=== PATIENT | female | born 1960 | race Caucasian/White ===

== ENCOUNTER → 2018-06-26 | Outpatient (CLI) | payer OTHER | LOC: FIMAGING 13:03 | PROVIDERS: ATTEND Physician Assistant Medical | DX: R22.32 Localized swelling, mass and lump, left upper limb (principal) ==

== ENCOUNTER → 2018-06-30 | Outpatient (CLI) | payer OTHER | LOC: FIMAGING 07:44 | PROVIDERS: ATTEND Family Medicine | DX: R22.32 Localized swelling, mass and lump, left upper limb (principal) ==

== ENCOUNTER 2018-07-19 12:56 | Day surgery (SDC) | payer OTHER ==
[2018-07-19 13:44] LABS: INR 0.99 (0.83-1.16); PROTIME(PATIENT) 13.3 SEC (12.0-15.0)
[2018-07-19] MEDS ORDERED: fentaNYL 100 MCG/2 ML INJ ONE (13:46)
[2018-07-19] MEDS ORDERED: MIDAZOLAM 2 MG/2 ML VIAL ONE (13:46)
--- NOTE | 2018-07-19 13:49 | PDRADPRE ---
Radiology History & Physical Indication for procedure: cancer Home medications: Aspirin 81mg (*) 81 mg PO 07/15/18 [Last Taken Unknown] Lorazepam 0.5 mg PO PRN PRN 07/15/18 [Last Taken Unknown] Allergies/Adverse Reactions: No Known Allergies Allergy (Unverified 07/15/18 17:17) Mental status: A&Ox3
--- NOTE | 2018-07-19 13:49 | PDPROPOC ---
Sedation Plan of Care ASA Classification: ASA 2 Mallampati Score: Class 2 Mallampati Reference Image:
[2018-07-19] MEDS ORDERED: LIDO/EPI 1% **for epidural** 30 ML SDV ONE (13:58)
[2018-07-19] MEDS ORDERED: fentaNYL 100 MCG/2 ML INJ IVP PRN (14:31)
[2018-07-19] MEDS ORDERED: FLUMAZENIL 0.5 MG/5 ML MDV IVP PRN (14:31)
[2018-07-19] MEDS ORDERED: NALOXONE HCL 0.4 MG/ML INJ IVP PRN (14:31)
[2018-07-19] MEDS ORDERED: MEPERIDINE 25 MG/ML SYR IVP PRN (14:31)
[2018-07-19] MEDS ORDERED: MIDAZOLAM 2 MG/2 ML VIAL IVP PRN (14:31)
[2018-07-19] MEDS ORDERED: NS 1,000 ML IV SCH (14:45)
[2018-07-19] MEDS ORDERED: ONDANSETRON 4 MG/2 ML VIAL IVP PRN (15:27)
[2018-07-19] MEDS ORDERED: ACETAMINOPHEN 325 MG TAB PO PRN (15:27)
[2018-07-19] MEDS ORDERED: LIDOCAINE 1% 300 MG/30 ML SDV ONE (16:02)
[2018-07-19 16:22] VITALS: BP 134/90
== END 2018-07-19 16:47 | disposition home or self-care (01) ==
LOC: FIMAGING 12:56
PROVIDERS: ATTEND Internal Medicine Hematology & Oncology
PROC: 0JH60WZ Insertion of Totally Implantable Vascular Access Device into Chest Subcutaneous Tissue and Fascia, Open Approach (ICD-10-PCS; principal; 2018-07-19 15:40)
PROC: 02HV33Z Insertion of Infusion Device into Superior Vena Cava, Percutaneous Approach (ICD-10-PCS; principal; 2018-07-19 15:40)
DX: Z45.2 Encounter for adjustment and management of vascular access device (principal); C49.12 Malignant neoplasm of connective and soft tissue of left upper limb, including shoulder
CPT/HCPCS: J1642; J2250; J3010

== ENCOUNTER 2018-09-11 11:06 | Day surgery (SDC) | payer OTHER ==
[2018-09-11] MEDS ORDERED: FLUMAZENIL 0.5 MG/5 ML MDV IVP PRN (11:53)
[2018-09-11] MEDS ORDERED: NALOXONE HCL 0.4 MG/ML INJ IVP PRN (11:53)
[2018-09-11] MEDS ORDERED: MIDAZOLAM 2 MG/2 ML VIAL IVP PRN (11:53)
[2018-09-11] MEDS ORDERED: fentaNYL 100 MCG/2 ML INJ IVP PRN (11:53)
[2018-09-11] MEDS ORDERED: NS 1,000 ML IV SCH (12:00)
[2018-09-11] MEDS ORDERED: LIDO/EPI 1% **for epidural** 30 ML SDV ONE (12:32)
[2018-09-11 12:36] LABS: INR 1.07 (0.83-1.16); PROTIME(PATIENT) 13.5 SEC (12.0-15.0)
[2018-09-11 12:57] LABS: PLATELET COUNT 63 10^3/uL (150-400)
[2018-09-11] MEDS ORDERED: ONDANSETRON 4 MG/2 ML VIAL IVP PRN (13:54)
[2018-09-11] MEDS ORDERED: ACETAMINOPHEN 325 MG TAB PO PRN (13:54)
--- NOTE | 2018-09-11 13:55 | PDPROPOC ---
Sedation Plan of Care Sedation Plan of Care: vital signs stable, mental status noted, patient educated of risks, benefits, alternatives, patient can tolerate sedation ASA Classification: ASA 2 Planned drugs: fentanyl, midazolam Mallampati Score: Class 2 Mallampati Reference Image: Patient passed 3-3-2 rule?: Yes
--- NOTE | 2018-09-11 13:56 | PDRADPRE ---
Radiology History & Physical Indication for procedure: cancer (Port removal; completion of thearpy. Wound dehiscense without gross evidence of infection. Patient prefers to remove port vs revise incision.) Home medications: Lorazepam 0.5 mg PO PRN PRN 07/15/18 [Last Taken 09/11/18] CEPHALEXIN 500 mg PO QID 09/09/18 [Last Taken 09/11/18] Ondansetron HCl 8 mg PO Q8 09/09/18 [Last Taken 09/11/18] Xarelto 10mg (*) 10 mg PO DAILY 09/09/18 [Last Taken 09/09/18] Allergies/Adverse Reactions: No Known Allergies Allergy (Unverified 07/15/18 17:17) Mental status: A&Ox3 Heart exam: regular rate and rhythm Lungs exam: clear to auscultation Mallampati Score: Class 2
--- NOTE | 2018-09-11 13:57 | PDRADPN ---
Radiology Procedure Note Date of Procedure: 09/11/18 Radiologist: Agustin Lopez Anesthesia: IV Sedation Pre-op Diagnosis: Port removal Post-op Diagnosis: Port removal Indication: Completion of therapy Procedure: Port removal Finding(s): Wound dehiscense without gross evidence of infection. Port removed without complication. Please see separately dictated report for complete details. Inf/Abcess present in the surg proc area at time of surgery?: No
[2018-09-11 14:28] VITALS: BP 98/60
== END 2018-09-11 14:40 | disposition home or self-care (01) ==
LOC: FIMAGING 11:06
PROVIDERS: ATTEND Internal Medicine Hematology & Oncology
PROC: 0JPT03Z Removal of Infusion Device from Trunk Subcutaneous Tissue and Fascia, Open Approach (ICD-10-PCS; principal; 2018-09-11 13:35)
PROC: 0JPT0WZ Removal of Totally Implantable Vascular Access Device from Trunk Subcutaneous Tissue and Fascia, Open Approach (ICD-10-PCS; principal; 2018-09-11 13:35)
DX: T81.31XA Disruption of external operation (surgical) wound, not elsewhere classified, initial encounter (principal); Z45.2 Encounter for adjustment and management of vascular access device; Z85.831 Personal history of malignant neoplasm of soft tissue
CPT/HCPCS: J2250; J2310; J3010

== ENCOUNTER → 2018-09-24 | Outpatient (CLI) | payer OTHER ==
[~2018-09-24] MED LIST: GADOBUTROL 10 ML VIAL IVP ONE
== END ==
LOC: FIMAGING 06:52
PROVIDERS: ATTEND Internal Medicine Hematology & Oncology
DX: D68.51 Activated protein C resistance (principal); C49.12 Malignant neoplasm of connective and soft tissue of left upper limb, including shoulder
CPT/HCPCS: A9585